=== PATIENT | male | born 1970 | race African-American/Black ===

== ENCOUNTER 2018-04-25 04:47 | Emergency (ER) | payer OTHER ==
[~2018-04-25] VITALS: Ht 177.8 cm; Wt 77.1 kg
[~2018-04-25 04:47] MED LIST: CARAFATE 11 GM/10 M1 PO; NOHOMEMEDICATIONS; NORCO 5-325 TA1 EACH PO; PRILOSEC40 MG; PRILOSEC40 MG PO; ULTRAM 50MG TAB50 MG PO; ZANTAC 150MG T150 M1
[2018-04-25 05:15] LABS: ABSOLUTE NEUTROPHILS 2.7 thou/uL (1.4-8.2); EOSINOPHILS 2.8 % (0.0-3.0); HEMATOCRIT 41.4 % (42.0-52.0); HEMOGLOBIN 14.3 gm/dL (14.0-18.0); LYMPHOCYTES 44.9 % (24.0-44.0); MCH 28.6 pg (26.0-34.0); MCHC 34.7 g/dL (28.0-37.0); MCV 82.6 fL (80.0-100.0); MONOCYTES 11.3 % (1.0-8.0); PLATELET COUNT 233 thou/uL (150-400); RBC 5.01 mil/uL (4.50-6.00); RDW 14.7 % (10.5-14.5); WBC 6.8 thou/uL (4.0-11.0)
[2018-04-25] MEDS ORDERED: BUTALB-APAP-CA1 EACH PO (05:19)
[2018-04-25] MEDS ORDERED: NAPROSYN500 MG PO (05:19)
[2018-04-25 05:23] LABS: ANION GAP 12 mmol/L (7-16); BUN 15 mg/dL (7-18); CALCIUM 8.7 mg/dL (8.5-10.1); CHLORIDE 102 mmol/L (98-107); CO2 26 mmol/L (21-32); GLUCOSE 111 mg/dL (74-106); POTASSIUM 3.8 mmol/L (3.5-5.1); SODIUM 140 mmol/L (136-145)
[2018-04-25 05:26] LABS: APTT 29.1 Seconds (24.5-32.8); PROTIME 10.3 Seconds (9.3-11.4)
[2018-04-25 05:31] LABS: ALBUMIN 3.7 g/dL (3.4-5.0); MAGNESIUM 2.1 mg/dL (1.8-2.4); SGOT 27 U/L (15-37); SGPT 37 U/L (30-65); TOTAL BILIRUBIN 0.7 mg/dL (<0.1-1.0); TOTAL PROTEIN 7.1 g/dL (6.4-8.2); TROPONIN-I <0.06 ng/mL (<0.06)
[2018-04-25 05:35] LABS: URINE BILIRUBIN NEGATIVE (Negative); URINE BLOOD NEGATIVE (Negative); URINE CLARITY CLEAR; URINE COLOR YELLOW; URINE GLUCOSE-RANDOM* NEGATIVE (Negative); URINE KETONES NEGATIVE (Negative); URINE LEUKOCYTES-REFLEX NEGATIVE (Negative); URINE NITRITE-REFLEX NEGATIVE (Negative); URINE PROTEIN (DIPSTICK) NEGATIVE (Negative); URINE SPECIFIC GRAVITY 1.015 (1.005-1.035)
[2018-04-25 05:44] LABS: AMP/METHAMP Negative (Negative); BARBITURATES Negative (Negative); BENZODIAZEPINES Negative (Negative); COCAINE Negative (Negative); METHADONE Negative (Negative); OPIATES Negative (Negative); PCP Negative (Negative)
[2018-04-25 06:13] VITALS: BP 137/76
--- NOTE | 2018-04-25 08:28 | EKG ---
[address] [address] ELECTROCARDIOGRAM REPORT Name: BELLE JOHNSON [id number] ������������������ Admission: 04/25/18 ������������������ Attend Phys: Discharge: 04/25/18 ������������������ Date of : 74 Report #: [id number] ����������������������������������������������������������������� [id number] THIS REPORT FOR: //name// [facility] ED Test Date: 2018-04-25 Test Time: 05:01:45 Pat Name: BELLE JOHNSON Department: Room: Gender: M Director Field Services: rhea : 1970 Requested By: Abel Ware Order Number: [id number] MD: Teddy Jeffries Measurements Intervals [place] Rate: 78 P: 53 TN: 171 QRS: -1 QRSD: 89 T: 20 QT: 367 QTc: 419 Interpretive Statements Sinus rhythm Compared to ECG 10/20/2011 15:16:06 Sinus bradycardia no longer present Sinus arrhythmia no longer present Electronically Signed On 04-25-2018 8:28:22 MACHINE [employer]OOK[employer]EE[employer] by Teddy Jeffries [email or web address] ��������������������������������������������� <ELECTRONICALLY SIGNED> ���������������������������������������� By: Teddy Jeffries MD ��������������������������������������������� 04/25/18 0828 050 050 Teddy Jeffries MD /GUERO
== END 2018-04-25 06:13 | disposition home or self-care (01) ==
LOC: ER 04:47
PROVIDERS: Emergency Medicine
DX: G44.209 Tension-type headache, unspecified, not intractable (principal); M54.5 Low back pain; M54.2 Cervicalgia; M25.512 Pain in left shoulder; M25.511 Pain in right shoulder; K21.9 Gastro-esophageal reflux disease without esophagitis; F17.210 Nicotine dependence, cigarettes, uncomplicated